=== PATIENT | male | born 1995 | race African-American/Black ===

== ENCOUNTER 2023-12-28 09:05 | Emergency (ER) | payer OTHER, BC ==
[~2023-12-28] VITALS: Ht 182.9 cm; Wt 186.4 kg
[~2023-12-28 09:05] MED LIST: NORMODYNE200 MG; VOLTAREN 75 DR75 MG PO
[2023-12-28 09:11] VITALS: TEMP 98.4
[2023-12-28] MEDS ORDERED: PREDNISONE20 MG PO (09:38)
[2023-12-28] MEDS ORDERED: dexAMETHasone 10 MG/ML VIAL IM ONE (09:45)
[2023-12-28 09:55] VITALS: BP 126/89; PULSE 90
== END 2023-12-28 09:55 | disposition home or self-care (01) ==
LOC: COL.ER 09:05
DX: L23.9 Allergic contact dermatitis, unspecified cause (principal)
CPT/HCPCS: J1100

== ENCOUNTER 2024-06-11 10:25 | Day surgery (SDC) | payer OTHER, BC ==
[~2024-06-11] VITALS: Ht 182.9 cm; Wt 171.8 kg
[~2024-06-11 10:25] MED LIST changes: +LR 1,000 ML IV SCH; +PREDNISONE20 MG PO
[2024-06-11] MEDS ORDERED: Indocyanine Green 12.5 MG in Water For Injection,Sterile 2.5 ML IV ONE (11:30)
[2024-06-11] MEDS ORDERED: Lidocaine PF 2% (20 MG/ML) 5 ML VIAL ONE (11:47)
[2024-06-11] MEDS ORDERED: fentaNYL 50 MCG/ML 2 ML VIAL ONE ×2 (11:48→13:48)
[2024-06-11] MEDS ORDERED: Rocuronium 50 MG/5 ML Multi-Dose VIAL ONE (11:48)
[2024-06-11] MEDS ORDERED: NS 20 ML IV ONE (11:49)
[2024-06-11 11:50] LABS: BASO % 0.6 % (0.0-2.0); EOS # 0.3 K/mm3 (0.0-0.7); EOS % 5.2 % (0.0-4.0); GRAN # 2.6 K/mm3 (1.4-6.5); GRAN % 48.9 % (42.2-75.2); HEMATOCRIT 48.8 % (42.0-52.0); LYMPH # 1.9 K/mm3 (1.2-3.4); LYMPH % 36.9 % (20.0-51.0); MEAN CELL VOLUME 86 fl (80.0-100.0); MEAN CORPUSCULAR HEMOGLOBIN 28 pg (27-31); MEAN CORPUSCULAR HGB CONC 33 g/dl (33.0-37.0); MEAN PLATELET VOLUME 9.6 fl (7.4-10.4); MONO # 0.4 K/mm3 (0.1-0.6); MONO % 8.2 % (1.7-9.3); PLATELET COUNT 294 K/mm3 (130-400); REDCELL DISTRIBUTION WIDTH-CV 14.2 % (11.5-14.5)
[2024-06-11 12:00] LABS: BILIRUBIN,TOTAL 0.6 mg/dL (0.2-1.2); CALCIUM 9.5 mg/dL (8.4-10.2); CREATININE, serum 1.17 mg/dL (0.72-1.25); TOTAL PROTEIN 8.3 g/dl (6.2-8.1)
[2024-06-11] MEDS ORDERED: NORCO 325 MG-51 TAB PO (12:35)
[2024-06-11] MEDS ORDERED: MOTRIN 600600 MG/TAB PO (12:36)
[2024-06-11] MEDS ORDERED: Ondansetron 4 MG/2 ML VIAL IV PRN ×2 (12:45→13:45)
[2024-06-11] MEDS ORDERED: Ibuprofen 600 MG TAB PO PRN (12:45)
[2024-06-11] MEDS ORDERED: Morphine 4 MG/ML VIAL IV PRN (12:45)
[2024-06-11] MEDS ORDERED: Acetaminophen 325 MG TAB PO PRN (12:45)
[2024-06-11 13:01] VITALS: BP 137/84; PULSE 78; TEMP 97.4
[2024-06-11] MEDS ORDERED: dexAMETHasone 10 MG/ML VIAL ONE (13:02)
[2024-06-11] MEDS ORDERED: Ondansetron 4 MG/2 ML VIAL ONE (13:02)
--- NOTE | 2024-06-11 13:09 | NUR ---
Pts med reconciliation finalized in discharge by Dr Diaz before able to enter pts reported home meds. Reported home meds as follows: labetolol 200mg BID-last taken 06/11/24 0900. acetazolamide 250mg BID-last taken 06/10/24. mounjaro inj. 7.5mg Weekly-last taken 05/29/24. nefedipine 60mg Daily-last taken 06/11/24 0900. metformin 500mg BID-last taken 06/10/24.
[2024-06-11] MEDS ORDERED: Topical Skin Adhesive 1 EACH (1 ML) TOP ONE (13:10)
[2024-06-11] MEDS ORDERED: Phenylephrine 10 MG/ML VIAL ONE (13:28)
[2024-06-11] MEDS ORDERED: HYDROmorphone 1 MG/1 ML SYRINGE [PACU/SDC ONLY] IV PRN (13:45)
[2024-06-11] MEDS ORDERED: Meperidine 50 MG/ML 1 ML VIAL IV PRN (13:45)
[2024-06-11] MEDS ORDERED: fentaNYL 50 MCG/ML 1 ML SYRINGE/VIAL [PACU/SDC ONLY] IV PRN (13:45)
[2024-06-11] MEDS ORDERED: hydrALAZINE 20 MG/ML 1 ML VIAL IV PRN (13:45)
[2024-06-11 15:35] VITALS: BP 152/97; PULSE 87; TEMP 97.7
[2024-06-11 15:45] VITALS: BP 154/73; PULSE 86
[2024-06-11 16:00] VITALS: BP 147/88; PULSE 74
[2024-06-11 16:15] VITALS: BP 146/81; PULSE 81
--- NOTE | 2024-06-11 17:01 | NUR ---
At 1535-Pt returned via cart to [facility]. Report received from Jacinta [employer]. Pt remains in room. Pt drowsy and on 2L via NC. VSS-see flowsheet. Pt tolerated lisa crackers and 3 cups of water. Dressing with skin gule to all 5 sites on abdomen remain clean dry and intact. Pt did get x1 dose of mortin per request for pain. Able to stand at bedside and dressed with help. IV removed and pressure dressing applied. Discharge teaching completed, pt and verbalized understanding. Pt taken via wheelchair to ED exit for dc home with driving. Left with dc instructions/teaching, f/u appt card and rx's already sent to pts pharmacy.
== END 2024-06-11 17:00 | disposition home or self-care (01) ==
LOC: SDCO 10:25
PROVIDERS: Surgery
DX: K80.10 Calculus of gallbladder with chronic cholecystitis without obstruction (principal); G47.33 Obstructive sleep apnea (adult) (pediatric); E66.01 Morbid (severe) obesity due to excess calories; Z99.89 Dependence on other enabling machines and devices
CPT/HCPCS: J0690; J1100; J1170; J1920; J2371; J2405; J2704; J3010; J7120